=== PATIENT | male | born 1990 | race Caucasian/White ===

== ENCOUNTER 2016-05-10 04:56 | Emergency (ER) | payer OTHER ==
[2016-05-10] MEDS ORDERED: NS 0.9% 1000 ML* 1,000 ML IV SCH (05:00)
[2016-05-10 05:15] LABS: Hematocrit 49 % (42-52); Hemoglobin 16.6 g/dl (14.0-18.0); Mean Corpuscular HGB Conc 34 g/dl (31-36); Mean Corpuscular Hemoglobin 30 pg (27-31); Mean Corpuscular Volume 89 fL (80-94); Mean Platelet Volume 10 um3 (7.4-10.4); Red Blood Count 5.48 10^6/ul (4.0-5.4); Red Cell Distribution Width 14 % (10.5-15); White Blood Count 8.9 10^3/ul (3.5-10.8)
[2016-05-10 05:30] LABS: BUN/Creatinine Ratio 14.6 (8-20); Calcium 9.3 mg/dL (8.6-10.3); EGFR African American 136.2 (>60); EGFR Non-African American 105.9 (>60); Globulin 3.3 g/dL (2-4); Total Bilirubin 0.4 mg/dL (0.2-1.0); Total Protein 8.3 g/dL (6.4-8.9)
[2016-05-10 06:05] LABS: Potassium 4.1 mmol/L (3.5-5.0)
[2016-05-10] MEDS ORDERED: Iohexol 300* (CONTRAST) 10 ML SDV IV ONE (06:06)
[2016-05-10 07:12] VITALS: BP 107/87
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
== END 2016-05-10 07:50 | disposition home or self-care (01) ==
LOC: ED 04:56
DX: M54.5 Low back pain (principal); R51 Headache; R55 Syncope and collapse; S09.90XA Unspecified injury of head, initial encounter; V49.9XXA Car occupant (driver) (passenger) injured in unspecified traffic accident, initial encounter; Y93.9 Activity, unspecified; Y92.9 Unspecified place or not applicable; Y99.9 Unspecified external cause status
CPT/HCPCS: 36415; 70450; 71260; 72125; 72131; 74177; 80053; 80320; 83690; 85025; 96361; 99282; G0480; Q9967

== ENCOUNTER 2016-05-16 15:58 | Emergency (ER) | payer OTHER ==
[2016-05-16 16:27] VITALS: BP 132/61
[2016-05-16] MEDS ORDERED: Ibuprofen TAB* 600 MG PO ONE (16:48)
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
== END 2016-05-16 17:43 | disposition home or self-care (01) ==
LOC: ED 15:58
DX: S03.42XA Sprain of jaw, left side, initial encounter (principal); V89.2XXA Person injured in unspecified motor-vehicle accident, traffic, initial encounter; Y92.9 Unspecified place or not applicable
CPT/HCPCS: 70486; 99282; A9270-GY

== ENCOUNTER 2017-04-19 09:35 | Emergency (ER) | payer BC, OTHER ==
[2017-04-19 10:09] VITALS: BP 131/63
== END 2017-04-19 15:34 | disposition left against medical advice (07) ==
LOC: ED 09:35
DX: R19.00 Intra-abdominal and pelvic swelling, mass and lump, unspecified site (principal); Z53.21 Procedure and treatment not carried out due to patient leaving prior to being seen by health care provider
CPT/HCPCS: 99281